=== PATIENT | male | born 1990 | race Hispanic/Latino ===

== ENCOUNTER 2023-06-23 15:30 | Emergency (ER) | payer SELFPAY | END 2023-06-23 17:14 | disposition home or self-care (01) | LOC: MW.ED 15:30 | DX: S49.91XA Unspecified injury of right shoulder and upper arm, initial encounter (principal); Z79.899 Other long term (current) drug therapy; X50.0XXA Overexertion from strenuous movement or load, initial encounter | CPT/HCPCS: 73030-26-RT; 73030-RT; 99283 ==